=== PATIENT | male | born 1975 | race Caucasian/White ===

== ENCOUNTER 2022-12-09 12:03 | Emergency (ER) | payer OTHER ==
[~2022-12-09] VITALS: Ht 167.6 cm; Wt 80.7 kg
[2022-12-09 12:28] VITALS: BP_SYST 140; PULSE 94; RESP 17; TEMP 97.6; O2SAT 98
[2022-12-09] MEDS ORDERED: IBUP-1971 PO (13:53)
[2022-12-09] MEDS ORDERED: TRAM50TA2 PO (13:53)
[2022-12-09 14:10] VITALS: BP_SYST 140; PULSE 94; RESP 17; TEMP 97.6; O2SAT 98
[2022-12-10] MEDS ORDERED: TRAM50TA2 PO (15:14)
[2022-12-10] MEDS ORDERED: IBUP-1971 PO (15:14)
== END 2022-12-09 14:10 | disposition home or self-care (01) ==
LOC: SED 12:03
DX: S00.03XA Contusion of scalp, initial encounter (principal); M25.551 Pain in right hip; M54.2 Cervicalgia; Z79.899 Other long term (current) drug therapy; W19.XXXA Unspecified fall, initial encounter; Y93.89 Activity, other specified; Y92.89 Other specified places as the place of occurrence of the external cause; Y99.8 Other external cause status
CPT/HCPCS: 70450-TC; 72125-TC; 73502; 76376; 99284